=== PATIENT | male | born 1965 | race Caucasian/White ===

== ENCOUNTER 2019-11-18 10:04 | Day surgery (SDC) | payer OTHER, BC ==
[~2019-11-18] VITALS: Ht 185.4 cm; Wt 115.0 kg
[2019-11-18] MEDS ORDERED: RIVA20TA PO (10:43)
[2019-11-18] MEDS ORDERED: AMLO10TA8 PO (10:43)
[2019-11-18] MEDS ORDERED: TELM1TAB PO (10:43)
[2019-11-18] MEDS ORDERED: DICL100G19 TD (10:43)
[2019-11-18] MEDS ORDERED: ATEN100T PO (10:43)
[2019-11-18] MEDS ORDERED: GLIP-33 PO (10:43)
[2019-11-18] MEDS ORDERED: CYCL-259 PO (10:43)
[2019-11-18] MEDS ORDERED: CLON-275 PO (10:43)
[2019-11-18] MEDS ORDERED: ATOR40TA PO (10:43)
[2019-11-18] MEDS ORDERED: OXYC5CAP2 PO (10:43)
[2019-11-18] MEDS ORDERED: SILD100T PO (10:43)
[2019-11-18] MEDS ORDERED: TRAM50TA2 PO (10:43)
[2019-11-18] MEDS ORDERED: VERAPAMIL 2.5 MG/ML, 2ML ONE (11:38)
[2019-11-18] MEDS ORDERED: FENTANYL PF 100 MCG/2ML ONE (11:38)
[2019-11-18] MEDS ORDERED: MIDAZOLAM 1 MG/ML, 5ML ONE (11:38)
[2019-11-18] MEDS ORDERED: BIVALIRUDIN 250 MG ONE (11:38)
[2019-11-18] MEDS ORDERED: TICAGRELOR 90 MG TABLET ONE (11:38)
[2019-11-18] MEDS ORDERED: LIDOCAINE-MPF 1%, 5ML ONE (11:39)
[2019-11-18] MEDS ORDERED: HEPARIN 1,000 UNITS/ML, 10ML ONE (11:39)
== END 2019-11-18 14:25 | disposition home or self-care (01) ==
LOC: CACL 10:04
PROVIDERS: ATTEND Internal Medicine Cardiovascular Disease
DX: R94.39 Abnormal result of other cardiovascular function study (principal); I25.10 Atherosclerotic heart disease of native coronary artery without angina pectoris; E11.9 Type 2 diabetes mellitus without complications; I10 Essential (primary) hypertension; Z88.0 Allergy status to penicillin; Z79.899 Other long term (current) drug therapy; Z79.01 Long term (current) use of anticoagulants; Z86.718 Personal history of other venous thrombosis and embolism; Z98.890 Other specified postprocedural states
CPT/HCPCS: 93458; 99156; C1769; C1894; J2250; J3010; Q9967; J0583; J1644